=== PATIENT | female | born 1980 | race Caucasian/White ===

== ENCOUNTER → 2016-10-30 | Outpatient (CLI) | payer BC ==
[~2016-10-30] MED LIST: PRE NATAL VITAMINS PO
[2016-10-30 18:27] LABS: URINE APPEARANCE CLEAR (CLEAR); URINE BILIRUBIN NEG (NEG); URINE COLOR YELLOW; URINE EPITHELIAL CELL AUTO >30 /lpf (0-5); URINE NITRITE NEG (NEG); URINE PH 6.5 (4.5-7.5); UROBILINOGEN NEG (NEG)
[2016-10-30 18:35] LABS: MANUAL MICROSCOPIC REQUIRED? NO; REVIEW REQ? YES
== END | disposition home or self-care (01) ==
LOC: C.LABSPEC 17:30
PROVIDERS: ATTEND Obstetrics & Gynecology
DX: O09.512 Supervision of elderly primigravida, second trimester (principal)

== ENCOUNTER → 2016-11-02 | Outpatient (CLI) | payer BC ==
[2016-11-02 09:52] LABS: HEMATOCRIT 34.5 % (37-47)
== END | disposition home or self-care (01) ==
LOC: C.LAB1850 07:11
PROVIDERS: ATTEND Obstetrics & Gynecology
DX: O09.513 Supervision of elderly primigravida, third trimester (principal)

== ENCOUNTER → 2016-11-18 | Outpatient (CLI) | payer BC ==
[2016-11-18 07:28] LABS: PATIENT HEIGHT 137.2 cm
[2016-11-18 10:13] LABS: URINE TOTAL PROTEIN 17.7 mg/dl (0-11.9)
[2016-11-18 10:35] LABS: CREATININE 0.72 mg/dl (0.6-1.2); URINE TOTAL PROTEIN CALC 194.7 mg/24 hr (0-149.1)
== END | disposition home or self-care (01) ==
LOC: C.LAB1850 07:21
PROVIDERS: ATTEND Obstetrics & Gynecology
DX: O10.919 Unspecified pre-existing hypertension complicating pregnancy, unspecified trimester (principal)

== ENCOUNTER 2016-12-05 18:07 | Outpatient (CLI) | payer BC ==
[~2016-12-05] VITALS: Ht 162.6 cm; Wt 80.0 kg
[2016-12-05] MEDS ORDERED: LACTATED RINGER'S 1000ML 1,000 ML IV SCH (19:05)
[2016-12-05] MEDS ORDERED: BETAMETH SOD PHOS/ACETATE IA 6 MG/ML IM SCH (19:15)
[2016-12-05] MEDS ORDERED: BETAMETH SOD PHOS/ACETATE IA 6 MG/ML IM ONE (19:15)
[2016-12-05] MEDS ORDERED: AMPICILLIN INJ 250 MG in SODIUM CHLORIDE 0.9% 50ML 50 ML IV SCH (20:00)
[2016-12-05] MEDS ORDERED: AZITHROMYCIN IV 500 MG in DEXTROSE 5% 250ML 250 ML IV ONE (20:00)
[2016-12-05 20:19] VITALS: Ht 162.6 cm; Wt 80.0 kg
--- NOTE | 2016-12-05 20:19 | HISTORY & PHYSICAL EXAMINATION ---
DATE OF ADMISSION: 12/05/2016 CHIEF COMPLAINT: Leakage of fluid. HISTORY OF PRESENT ILLNESS: This is a 36-year-old G3, P0-0-2-0, at 34 weeks' gestation today with a royal intrauterine ; who presents with a complaint of leakage of fluid, clear and occurring several times, first at 7:30 this morning and continuing throughout the day. Her is complicated by chronic hypertension, advanced maternal age, cleft lip and palate in the setting of normal cell free DNA testing, and recent vaginal yeast infection treated with Monistat. At the time of presentation, patient appreciates normal movement, no painful contractions and no vaginal bleeding other than a small bit of bloody mucus that was passed early this morning after which the leakage of fluid began. She is currently feeling gross leakage of clear fluid. PAST MEDICAL HISTORY: Notable for varicella. PAST SURGICAL HISTORY: [place] teeth and a D\T\E for a prior miscarriage. GYNECOLOGIC HISTORY: LGSIL in May 2014. OBSTETRIC HISTORY: Prior SAB with a D\T\E in 2013 and prior SAB with a D\T\E in 2014 as well as the current . FAMILY HISTORY: Noncontributory. SOCIAL HISTORY: Negative x3. This is , college educated female. LAB: Are notable for a blood type of O positive, rubella immune, RPR nonreactive, hepatitis B negative, HIV negative, diabetes screen failed 1 hour past 2 hours. Gonorrhea and Chlamydia negative. Maternity 21 negative. Anatomy ultrasound notable for a marginal placental cord insertion and a cleft lip and palate. She is known to the [place] [facility] service for these issues. PHYSICAL EXAMINATION: CURRENT VITAL SIGNS: Within normal limits. GENERAL: The patient is in no acute distress. HEART: Regular rate and rhythm. LUNGS: Clear to auscultation bilaterally. ABDOMEN: Gravid, soft and nontender. Cervicovaginal exam is positive for leakage of fluid which is also AmniSure positive. In addition, the cervix on sterile exam is found to be 1 cm dilated, thick and -3 station. Ultrasound shows the fetus to be currently in breech presentation. heart tones are presently 145 with moderate variability, good accels and no decels. Her toco is currently quiet. ASSESSMENT AND PLAN: This is a 36-year-old 3, para 0-0-2-0 at 34 weeks with premature rupture of membranes and no evidence of labor. The patient was discussed with ____ of [place] [facility], who does accept patient in transfer. Prior to departure, she will be provided with her first dose of betamethasone IM. She will also be started on ampicillin and azithromycin for premature rupture of membranes in the setting of group B Strep unknown. She will be transferred via helicopter to maternal medicine which has accepted patient's care.
== END 2016-12-05 20:10 | disposition short-term general hospital (02) ==
LOC: C.OPB 18:07 → C.LD 18:07 → C.OPB 20:10
PROVIDERS: ATTEND Obstetrics & Gynecology
DX: O42.913 Preterm premature rupture of membranes, unspecified as to length of time between rupture and onset of labor, third trimester (principal); Z3A.34 34 weeks gestation of pregnancy; O09.523 Supervision of elderly multigravida, third trimester; O16.3 Unspecified maternal hypertension, third trimester

== ENCOUNTER → 2017-07-26 | Outpatient (CLI) | payer BC | END | disposition home or self-care (01) | LOC: C.PAPS 11:09 | PROVIDERS: ATTEND Obstetrics & Gynecology | DX: Z01.419 Encounter for gynecological examination (general) (routine) without abnormal findings (principal) ==